=== PATIENT | male | born 1980 | race Caucasian/White ===

== ENCOUNTER 2018-01-02 11:56 | Emergency (ER) | payer OTHER ==
[~2018-01-02] VITALS: Ht 185.4 cm; Wt 95.7 kg
[~2018-01-02 11:56] MED LIST: AMOXICILLIN500 MG PO; CLEOCIN150 MG PO; CLINDAMYCIN HC300 MG PO; NORCO 325 MG-51 TAB PO; PEN-VK500 MG PO; PERIDEX 480 ML480 ML PO; TRAMADOL HCL50 MG PO; VICODIN ES 7501 TAB PO
[2018-01-02 12:16] LABS: BILIRUBIN NEGATIVE (NEGATIVE); BLOOD 3+ (NEGATIVE); CLARITY SL CLOUDY (CLEAR); COLOR YELLOW (YELLOW); GLUCOSE NEGATIVE (NEGATIVE); KETONE NEGATIVE (NEGATIVE); LEUKO ESTERASE NEGATIVE (NEGATIVE); NITRITE NEGATIVE (NEGATIVE); UROBILINOGEN 0.2 E.U./dl (0.2-1.0)
[2018-01-02 12:21] LABS: BASO # 0.1 10*3/uL (0.0-0.1); BASO % 0.9 % (0.0-1.0); EOS % 0.3 % (1.0-4.0); HEMATOCRIT 47.6 % (42.0-52.0); HEMOGLOBIN 16.4 g/dl (14.0-18.0); LYMPH # 1.3 10*3/uL (1.3-4.4); LYMPH % 19.8 % (27.0-41.0); MEAN CELL VOLUME 97.7 fl (80.0-94.0); MEAN CORPUSCULAR HGB 33.7 pg (27.0-31.0); MEAN CORPUSCULAR HGB CONC 34.5 g/dl (33.0-37.0); MEAN PLATELET VOLUME 9.3 fl (9.6-12.3); MONO # 0.4 10*3/uL (0.1-1.0); MONO % 6.7 % (3.0-9.0); NEUT # 4.6 10*3/uL (2.3-7.9); NEUT % 71.8 % (47.0-73.0); PLATELET COUNT AUTOMATED 134 10*3/uL (130-400); RED BLOOD COUNT 4.87 10*6/uL (4.50-5.90); RED CELL DISTRI WIDTH 12.3 % (0-14.5); WHITE BLOOD COUNT 6.5 10*3/uL (4.8-10.8)
[2018-01-02 12:39] LABS: ALBUMIN 3.8 gm/dl (3.1-4.5); ALKALINE PHOSPHATASE 71 U/L (45-117); BUN 14 mg/dl (7-24); CHLORIDE 103 mmol/L (98-107); CREATININE 1.17 mg/dL (0.70-1.30); POTASSIUM 4.2 mmol/L (3.5-5.1); SGOT/AST 23 IU/L (3-35); SGPT/ALT 36 U/L (12-78); SODIUM 136 mmol/L (136-145); TOTAL PROTEIN 7.6 gm/dL (6.4-8.2)
[2018-01-02 12:47] LABS: RBC 16-20 rbc/hpf (0-2)
[2018-01-02 12:48] LABS: BACTERIA TRACE
[2018-01-02] MEDS ORDERED: PYRIDIUM200 M1 PO (14:38)
[2018-01-02] MEDS ORDERED: SEPTDS PO (14:38)
== END 2018-01-02 14:45 | disposition home or self-care (01) ==
LOC: ED 11:56
PROVIDERS: Nurse Practitioner Family
DX: R30.0 Dysuria (principal); R51 Headache; M54.5 Low back pain

== ENCOUNTER 2018-02-16 17:33 | Emergency (ER) | payer OTHER ==
[~2018-02-16] VITALS: Ht 185.4 cm; Wt 93.0 kg
[~2018-02-16 17:33] MED LIST changes: +PYRIDIUM200 M1 PO; +SEPTDS PO
[2018-02-16] MEDS ORDERED: AMOXICILLIN500 M2 PO (17:44)
== END 2018-02-16 17:51 | disposition home or self-care (01) ==
LOC: ED 17:33
DX: K08.89 Other specified disorders of teeth and supporting structures (principal)

== ENCOUNTER 2018-04-09 14:42 | Emergency (ER) | payer OTHER ==
[~2018-04-09] VITALS: Ht 185.4 cm; Wt 93.0 kg
[~2018-04-09 14:42] MED LIST changes: +AMOXICILLIN500 M2 PO
[2018-04-09] MEDS ORDERED: IBUPROFEN600 MG PO (15:35)
[2018-04-09] MEDS ORDERED: AMOXICILLIN500 M3 PO (15:35)
== END 2018-04-09 15:59 | disposition home or self-care (01) ==
LOC: ED 14:42
DX: K08.89 Other specified disorders of teeth and supporting structures (principal); F17.200 Nicotine dependence, unspecified, uncomplicated; Z79.2 Long term (current) use of antibiotics

== ENCOUNTER 2020-11-10 13:21 | Emergency (ER) | payer BC ==
[~2020-11-10] VITALS: Ht 182.8 cm; Wt 114.3 kg
[~2020-11-10 13:21] MED LIST changes: +AMOXICILLIN500 M3 PO; +IBUPROFEN600 MG PO
[2020-11-10] MEDS ORDERED: IBUPROFEN600 MG PO (15:39)
[2020-11-10] MEDS ORDERED: Tobrex Ophth S2.5 ML OPH (15:39)
== END 2020-11-10 16:03 | disposition home or self-care (01) ==
LOC: ED 13:21
DX: H10.9 Unspecified conjunctivitis (principal); F17.200 Nicotine dependence, unspecified, uncomplicated; Z79.899 Other long term (current) drug therapy

== ENCOUNTER → 2021-06-21 | Outpatient (CLI) | payer BC ==
[~2021-06-21] MED LIST changes: +Tobrex Ophth S2.5 ML OPH
== END | disposition home or self-care (01) ==
LOC: COVID19 15:47
PROVIDERS: ATTEND Internal Medicine
DX: U07.1 COVID-19 (principal)